=== PATIENT | female | born 1995 ===

== ENCOUNTER 2016-11-06 23:33 | Emergency (ER) | payer OTHER ==
[2016-11-06 23:42] VITALS: BP 151/130
--- NOTE | 2016-11-06 23:50 | EDM.PDOC ---
ED HPI Trauma - General Chief Complaint: Upper Extremity Injury/Pain Stated Complaint: BROKEN ARM Time Seen by Provider: 11/06/16 23:40 Source: Reports: Patient History Limitations: Reports: No limitations - History of Present Illness INITIAL COMMENTS - FREE TEXT/NARRATIVE: This 21 yo female patient was brought to the ED by law enforcement due to a right forearm injury. The patient reports she was at the correction when her arm got caught between the bunks. The patient has pain to her right upper and right lower arm. The patient has bruising over her right distal forearm. The patient has no previous injuries to that area. Symptom Onset Date: 11/06/16 Occurred When: just prior to arrival Occurred Where: other (correction) Method of Injury: direct blow, fall Severity: moderate Pain/Injury Location: Reports: upper extremity, right Consciousness: Reports: no loss of consciousness Associated Symptoms: Reports: no other symptoms Past Medical History - Past Health History Medical/Surgical History: Denies Medical/Surgical History Musculoskeletal History: Reports: Fracture - Past Surgical History Musculoskeletal Surgical History: Reports: Shoulder surgery Social & Family History - Tobacco Use Smoking Status *Q: Current Every Day Smoker Years of Tobacco use: 7 Packs/Tins Daily: 1 Used Tobacco, but Quit: No Second Hand Smoke Exposure: Yes - Caffeine Use Caffeine Use: Reports: Soda - Recreational Drug Use Recreational Drug Use: No Review of Systems - Review of Systems Review Of Systems: See Below Constitutional: Reports: no symptoms Eyes: Reports: no symptoms Ears: Reports: no symptoms Nose: Reports: no symptoms Mouth/Throat: Reports: no symptoms Respiratory: Reports: no symptoms Cardiovascular: Reports: no symptoms GI/Abdominal: Reports: No symptoms Genitourinary: Reports: no symptoms Musculoskeletal: Reports: arm pain (right upper and lower arm pain) Skin: Reports: bruising (right distal forearm) Neurological: Reports: no symptoms Psychiatric: Reports: no symptoms Trauma Exam - Physical Exam Exam: See Below Exam Limited By: No limitations General Appearance: Reports: alert, WD/WN, moderate distress Head: Reports: atraumatic, normocephalic Eyes: bilateral eye: EOMI, normal inspection, PERRL Ears: Reports: normal external exam, normal canal, hearing grossly normal, normal TMs Nose: Reports: normal inspection, normal mucousa, no blood Throat/Mouth: Reports: Normal inspection, Normal lips, Normal teeth, Normal gums , Normal oropharynx, Normal voice, No airway compromise Neck: Reports: non-tender, full range of motion, normal alignment, normal inspection Respiratory Exam: Reports: no respiratory distress, lungs clear, normal breath sounds Cardiovascular: Reports: normal peripheral pulses, regular rate, rhythm, no edema, no gallop, no JVD, no murmur, no rub GI/Abdominal: Reports: normal bowel sounds, soft, non tender, no organomegaly, no distention, no abnormal bruit, no mass (Female) Exam: Deferred Rectal (Female) Exam: Deferred Back: Reports: full range of motion, normal inspection, non-tender Extremities: Reports: no evidence of injury, normal range of motion, non-tender , no pedal edema, pelvis stable Neurologic: Reports: saturator II-XII nml as tested, no motor/sensory deficits, alert , normal mood/affect, oriented x 3 Skin: Reports: Normal color, Warm/dry Course - Vital Signs Last Recorded V/S: Last Vital Signs Temp 36.8 C 11/06/16 23:41 Pulse 94 11/06/16 23:41 Resp 20 11/06/16 23:41 BP 151/130 H 11/06/16 23:41 Pulse Ox 97 11/06/16 23:41 Departure - Departure Time of Disposition: 00:06 Disposition: Home, Self-Care 01 Condition: fair Clinical Impression: Strain of right upper arm Qualifiers: Encounter type: initial encounter Qualified Code(s): S46.911A - Strain of unspecified muscle, fascia and tendon at shoulder and upper arm level, right arm , initial encounter Instructions: Wrist Sprain Forms: ED Department Discharge Care Plan Goals: The patient and officer were advised of the examination and x-ray results during the visit. The patient was wrapped in an SETH wrap and placed in a sling for support. If the patient has any additional symptoms or concerns, the patient should follow-up with her primary care facility or return to the emergency department.
[2016-11-07] MEDS ORDERED: Acetaminophen 325 MG Tab PO ONE (00:13)
[2016-11-07] MEDS ORDERED: Acetaminophen 325 MG Tab ONE (00:15)
== END 2016-11-07 00:20 | disposition home or self-care (01) ==
LOC: DL.ED 23:33
DX: S46.911A Strain of unspecified muscle, fascia and tendon at shoulder and upper arm level, right arm, initial encounter (principal); F17.210 Nicotine dependence, cigarettes, uncomplicated; W23.0XXA Caught, crushed, jammed, or pinched between moving objects, initial encounter; Y92.149 Unspecified place in prison as the place of occurrence of the external cause
CPT/HCPCS: 73060; 73090; 99283; A9270